=== PATIENT | male | born 1960 | race Caucasian/White ===

== ENCOUNTER 2020-07-25 10:30 | Outpatient (CLI) | payer OTHER, SELFPAY ==
[2020-07-25] VITALS (9 sets, daily range): BP systolic 141–176; BP diastolic 84–101; PULSE 75–80; RESP 15–22; TEMP 36.5; O2SAT 94–97
--- NOTE | 2020-07-25 10:33 | DI.RAD.S_ITS ---
PROCEDURE: PAIN L INTERLAMINAR/CAUDAL INJ INDICATIONS: SPONDYLOSIS COMPARISON: Outside Facility, RG, XR L-SPINE 4-6V, 11/12/2019, 8:40. [facility], MANI, MRI L-SPINE W/O CONTRAST, 06/20/2020, 10:58. FINDINGS: Fluoroscopic spot filming was performed to verify placement of a spinal needle at the L4-L5 level, as labeled on the films. Appropriate location of the needle tip was confirmed by injection of iodinated contrast. IMPRESSION: Intraprocedural examination within normal limits. Dictated by: Du Cummins M.D. on 07/25/2020 at 10:47 Approved by: Du Cummins M.D. on 07/25/2020 at 10:48
[2020-07-25] MEDS: fentaNYL 100 MCG/2 ML INJ 50 MCG IV (11:08)
[2020-07-25] MEDS: MIDAZOLAM 5 MG/5 ML VIAL IV (11:08)
[2020-07-25] MEDS: IOPAMIDOL 15 ML VIAL 3 ML INJ (11:12)
[2020-07-25] MEDS: BUPIVACAINE 0.25% (PF) VIAL 2 ML INJ (11:12)
[2020-07-25] MEDS: BETAMETHASONE 30 MG/5 ML MDV 6 MG INJ (11:13)
[2020-07-25] MEDS: DEXAMETHASONE 10 MG/ML VIAL 20 MG INJ (11:13)
--- NOTE | 2020-07-25 11:18 | P.PCN_ITS ---
Date/Time/Diagnoses Date of procedure: 07/25/20 Time of procedure: 11:18 Pre-procedure diagnosis: 1. HNP WITH RADICULAR FEATURES, 2. MULTILEVEL CENTRAL STENOSIS, Post-procedure diagnosis: same Procedure Notes Procedure: 1. FLUOROSCOPICALLY GUIDED CONTRAST CONTROLLED INTERLAMINAR EPIDURAL STEROID INJECTION -L4/5 Indications: Chano is referred by Dr. Martinez for treatment of Bilateral Foraminal Stenosis R>L LE symptoms. Physician: Juan Francis Total Fluoroscopy time (seconds): 6 Total sedation minutes: 8 Complications: none Procedure in detail & Post-procedure care: FINDINGS Multilevel Central Spinal Stenosis with Nerve Root Compression DESCRIPTION OF PROCEDURE Fluoroscopically guided, contrast-controlled L4/5 translaminar epidural steroid injection. Following review of allergy and review of potential side effects and complications, including, but not necessarily limited to, infection, allergic reaction, local tissue breakdown, temporary as well as permanent nerve injury, paralysis, stroke and possible , the patient indicated that the patient understood and agreed to proceed. An informed consent document was signed by the patient, witnessed by a nurse, and placed in the patient's chart. Additionally, other treatment options including modalities, medications, and physical therapy were reviewed with the patient. After review of previous anaesthesic history and IV conscious sedation the patient was deemed safe to proceed with today?s procedure with IV conscious sedation as ASA class II designation. Safety time-out was performed to confirm patient ID, procedure to be performed and site of procedure. IV sedation was accomplished with a combination of 2mg of Versed and 50mcg of Fentanyl was administered by the RN after DO order, titrated to patient comfort during the course of the procedure while the patient remained responsive to all verbal commands In the prone position, following sterile prep and drape of the lumbar region, the L4/5 translaminar space was identified fluoroscopically. The skin was anesthetized via a 25-gauge, 1.5inch needle with 1% lidocaine solution. At this point, a 22-gauge short bevel spinal needle was atraumatically introduced and advanced under fluoroscopic guidance into the region of the L4/5 translaminar space. Depth was confirmed on lateral view. Radiological data, including multiple fluoroscopic views of the lumbar spine, reveal a spinal needle at the L4/5 translaminar space. Lateral views then show placement of the needle in the epidural space. Subsequent views show contrast material flowing superiorly and inferiorly in the epidural space. No vascular or intrathecal uptake is observed. At this point, using loss of resistance technique with saline and air, the epidural space was entered. This was confirmed following negative aspiration with injection of approximately 1.5cc of Isovue 200, showing excellent epidural flow without vascular or intrathecal uptake. At this point, 1cc of 1% lidocaine solution combined with 3cc or 20mg of dexamethasone and 6mg betamethasone was injected without incident. The patient tolerated the procedure well without signs or symptoms of co mplications prior to transfer to the recovery area continued monitoring without incident. The patient was then transferred to the recovery area where they were observed for an appropriate period of time after the injection. The patient reported a VAS score of 6 prior to the procedure and a post- procedure VAS of 0. POST OP INSTRUCTIONS The patient was provided a Pain Log to continue to record their response to the target-specific procedure prior to follow-up visit with their referring physician. Additionally, specific post-injection care instructions and a contact number to our office were provided if concerns arise regarding possible complications associated with the procedure are suspected.
== END 2020-07-25 11:45 | disposition home or self-care (01) ==
LOC: RAD 10:31
PROVIDERS: PCP Family Medicine; Referring Provider Family Medicine; Visit Provider Physical Medicine & Rehabilitation
DX: M51.16 Intervertebral disc disorders with radiculopathy, lumbar region (principal); M48.061 Spinal stenosis, lumbar region without neurogenic claudication
CPT/HCPCS: 62323; J0702; J1100; J2250; J3010

== ENCOUNTER → 2021-10-23 09:53 | Outpatient (CLI) | payer OTHER, SELFPAY ==
--- NOTE | 2021-10-23 09:54 | DI.RAD.S_ITS ---
PROCEDURE: XR CERVICAL SPINE 4V OR 5V INDICATIONS: NECK PAIN TECHNIQUE: 5 views of the cervical spine acquired. COMPARISON: CR, XR CERVICAL SPINE 2 OR 3 VIEWS, 05/05/2017, 15:19. MR, C-SPINE WITHOUT CONTRAST, 05/19/2017, 11:36. [facility], RF, CERVICAL TRANSLAMINAR, 07/25/2017, 10:53. FINDINGS: Bones: No fractures or dislocations to the C7 level. There is degenerative disc disease, [id number] at C5-C6 and C6-C7, and mild at C4-C5. Bilateral facet arthropathy, most pronounced at C3-C4 on the right. Oblique images demonstrate bony foraminal stenoses, moderate at C3-C4 bilaterally, and severe at C5-C6 bilaterally. Soft tissues: No prevertebral soft tissue swelling. Soft tissue ossifications versus posterior to lower cervical spine at the level C6-C7. There are multiple surgical clips in the left neck. IMPRESSION: 1. Degenerative disc and facet disease as described. 2. Severe foraminal steatosis at C5-C6 bilaterally and moderate foraminal stenosis at C3-C4 bilaterally. Dictated by: Beto Smallwood M.D. on 10/23/2021 at 11:24 Approved by: Beto Smallwood M.D. on 10/23/2021 at 11:49
== END ==
PROVIDERS: PCP Family Medicine; Referring Provider Physical Medicine & Rehabilitation; Visit Provider Physical Medicine & Rehabilitation
DX: M50.321 Other cervical disc degeneration at C4-C5 level (principal); M47.812 Spondylosis without myelopathy or radiculopathy, cervical region; M48.02 Spinal stenosis, cervical region; M54.16 Radiculopathy, lumbar region; M54.9 Dorsalgia, unspecified; G89.29 Other chronic pain
CPT/HCPCS: 72050

== ENCOUNTER → 2021-11-16 19:15 | Outpatient (CLI) | payer OTHER, SELFPAY ==
--- NOTE | 2021-11-16 19:17 | DI.MRI.S_ITS ---
PROCEDURE: MR CERVICAL SPINE WO CON INDICATIONS: Left C6 radiculopathy TECHNIQUE: Noncontrast sagittal T1 spin echo and T2 fast spin echo, sagittal STIR, foraminal oblique sagittal T2 fast spin echo, and axial gradient echo or T2 fast spin echo through the cervical spine. COMPARISON: None. FINDINGS: Image quality: Excellent. Alignment and Curvature: There is normal bony alignment. Bone Marrow: Marrow demonstrates normal overall signal. Spinal Cord: Visualized spinal cord has normal size and signal. No cerebellar tonsillar herniation. Paraspinous Soft Tissues: No paravertebral masses. Prevertebral soft tissues are normal in thickness. C2-C3: Loss of disc signal. Mild, diffuse disc bulge. Mild narrowing of the central canal. Mild right and moderate left facet hypertrophy. Mild left neural foraminal narrowing. No neural compression. C3-C4: Loss of disc signal. Mild, diffuse disc bulge. Moderate bilateral facet hypertrophy. Mild bilateral uncovertebral joint hypertrophy. Mild narrowing of the central canal. Moderate bilateral neural foraminal narrowing. No neural compression. C4-C5: Loss of disc signal. Mild, diffuse disc bulge. Moderate bilateral facet hypertrophy. Mild left uncovertebral joint hypertrophy. Mild right and severe left neural foraminal narrowing with compression of the exiting left C5 nerve root. C5-C6: Loss of disc signal and height. Moderate, diffuse disc bulge. Moderate bilateral facet hypertrophy. Severe bilateral uncovertebral joint hypertrophy. Severe narrowing of the central canal with slight compression of the cervical spinal cord. Severe bilateral neural foraminal narrowing with compression of the exiting C6 nerve roots. C6-C7: Loss of disc signal and height. Moderate, diffuse disc bulge. Mild bilateral facet hypertrophy. Moderate bilateral uncovertebral joint hypertrophy. Severe narrowing of the central canal with compression of the cervical spinal cord. Mild bilateral neural foraminal narrowing C7-T1: Loss of disc signal. Mild, diffuse disc bulge. Mild bilateral facet hypertrophy. No central stenosis. No neural foraminal narrowing. No neural compression. IMPRESSION: 1. Multilevel degenerative disc disease. 2. Multilevel facet and uncovertebral arthropathy. 3. Severe C5-C6 and C6-C7 central canal narrowing with compression of the cervical spinal cord. 4. Severe left C4-C5 neural foraminal narrowing with compression of the exiting left C5 nerve root. Severe bilateral C5-C6 neural foraminal narrowing with compression of the exiting bilateral C6 nerve roots. Dictated by: Jennifer Berumen MD, PhD on 11/19/2021 at 10:12 Approved by: Jennifer Berumen MD, PhD on 11/19/2021 at 10:17
== END ==
PROVIDERS: PCP Family Medicine; Referring Provider Physical Medicine & Rehabilitation; Visit Provider Physical Medicine & Rehabilitation
DX: M47.22 Other spondylosis with radiculopathy, cervical region (principal); M50.11 Cervical disc disorder with radiculopathy, high cervical region; M48.02 Spinal stenosis, cervical region
CPT/HCPCS: 72141

== ENCOUNTER 2021-12-06 08:28 | Outpatient (CLI) | payer OTHER, SELFPAY ==
[2021-12-06] VITALS (9 sets, daily range): BP systolic 107–144; BP diastolic 64–92; PULSE 85–91; RESP 12–22; TEMP 36.1; O2SAT 92–98
--- NOTE | 2021-12-06 08:29 | DI.RAD.S_ITS ---
PROCEDURE: PAIN C/T INTERLAMINAR INJECT INDICATIONS: SPINAL STENOSIS COMPARISON: None. FINDINGS: Fluoroscopic spot filming was performed to verify placement of spinal needles at the C6-C7 interlaminar space. level(s), as labeled on the films. Appropriate location(s) of the needle tip(s) was confirmed by injection of iodinated contrast. IMPRESSION: Access needle at at the C6-C7 interlaminar space for translaminar epidural steroid injection. Dictated by: Jennifer Berumen MD, PhD on 12/06/2021 at 11:06 Approved by: Jennifer Berumen MD, PhD on 12/06/2021 at 11:12
[2021-12-06] MEDS: MIDAZOLAM 2 MG/2 ML VIAL 4 MG IV (10:15)
[2021-12-06] MEDS: IOPAMIDOL 15 ML VIAL 3 ML INJ (10:17)
[2021-12-06] MEDS: BUPIVACAINE 0.25% (PF) VIAL 2 ML INJ (10:17)
[2021-12-06] MEDS: DEXAMETHASONE 10 MG/ML VIAL 30 MG INJ (10:18)
--- NOTE | 2021-12-06 10:29 | P.PCN_ITS ---
Date/Time/Diagnoses Date of procedure: 12/06/21 Time of procedure: 10:29 Pre-procedure diagnosis: 1. CERVICAL STENOSIS, 2. CERVICAL HNP WITH UPPER EXTREMITY RADICULAR FEATURES Post-procedure diagnosis: same Procedure Notes Procedure: 1. FLUORSCOPICALLY GUIDED CONTRAST CONTROLLED INTERLAMINAR EPIDURAL STEROID INJECTION - C6/7 TL MARSHA Indications: Chano is referred by Dr. Martinez for treatment of Cervical HNP with Upper Extremity Paresthesias. Physician: Juan Francis Total Fluoroscopy time (seconds): 31 Total sedation minutes: 15 Complications: none Procedure in detail & Post-procedure care: FINDINGS Cervical Stenosis due to disc deterioration and nerve root irritation and nerve root irritation DESCRIPTION OF PROCEDURE Fluoroscopically guided, contrast-controlled C6/7 translaminar epidural steroid injection with conscious sedation. Following review of allergy and review of potential side effects and complications, including, but not necessarily limited to, infection, allergic reaction, local tissue breakdown, temporary as well as permanent nerve injury, stroke, paralysis, and possible , the patient indicated that patient understood and agreed to proceed. An informed consent document was signed by the patient, witnessed by a nurse, and placed in the patient's chart. Additionally, other treatment options including modalities, medications, and physical therapy were reviewed with the patient. After review of previous anaesthesic history and IV conscious sedation the patient was deemed safe to proceed with today?s procedure with IV conscious s edation as ASA class II designation. Safety time-out was performed to confirm patient ID, procedure to be performed and site of procedure. IV sedation was accomplished with a combination of 4mg of Versed administered by the RN after DO order, titrated to patient comfort during the course of the procedure while the patient remained responsive to all verbal commands. In the prone position, following sterile prep and drape of the cervical region, the C6/7 translaminar space was identified fluoroscopically. The skin was anesthetized via a 25-gauge 1.5-inch needle with 1% lidocaine solution. At this point, a 25-gauge, 2.5-inch short bevel spinal needle was atraumatically introduced and advanced under fluoroscopic guidance into epidural space at the C6/7 translaminar space. Depth was confirmed on lateral view. Radiological data, including multiple fluoroscopic views of the cervical spine, reveal a spinal needle at the C6/7 translaminar space. Lateral views then show placement of the needle in the epidural space. Subsequent views show contrast material flowing superiorly and inferiorly in the epidural space. DSA fluoroscopy with live contrast injection, once again, confirmed no vascular or intrathecal uptake. At this point, using loss of resistance technique with saline and air, the epidural space was entered. Following negative aspiration, injection of approximately 1.5 cc of Isovue-200 with live fluoroscopy in the AP view confirmed epidural flow in the epidural space without vascular or intrathecal uptake observed. Subsequently, a test dose of 1 cc of 1% lidocaine solution was injected and patient was observed for two minutes without signs or symptoms of complications, including abdominal pain, shortness of breath, bilateral upper or lower extremity weakness, nausea and vomiting, prior to steroid injection. At this point, 3cc or 30mg of dexamethasone was then injected without incident. The patient tolerated the procedure well without signs or symptoms of complications prior to being transferred to the recovery area for further monitoring, The patient was then transferred to the recovery area where they were observed for an appropriate period of time after the injection. The patient reported a VAS score of 6 prior to the procedure and a post-procedure VAS of 0. POST OP INSTRUCTIONS The patient was provided a Pain Log to continue to record their response to the target-specific procedure prior to follow-up visit with the referring provider. Additionally, specific post-injection care instructions and a contact number to our office were provided if concerns arise regarding possible complications associated with the procedure are suspected.
== END 2021-12-06 10:50 | disposition home or self-care (01) ==
LOC: RAD 08:28
PROVIDERS: PCP Family Medicine; Referring Provider Physical Medicine & Rehabilitation; Visit Provider Physical Medicine & Rehabilitation
DX: M48.02 Spinal stenosis, cervical region (principal); M50.123 Cervical disc disorder at C6-C7 level with radiculopathy
CPT/HCPCS: 62321; 99152; J1100; J2250

== ENCOUNTER 2022-04-11 07:40 | Outpatient (CLI) | payer OTHER, SELFPAY ==
[2022-04-11] VITALS (8 sets, daily range): BP systolic 116–146; BP diastolic 59–94; PULSE 83–89; RESP 12–20; TEMP 36.4; O2SAT 93–98
--- NOTE | 2022-04-11 07:42 | DI.RAD.S_ITS ---
PROCEDURE: PAIN C/T INTERLAMINAR INJECT INDICATIONS: SPINAL STENOSIS COMPARISON: [facility], ARLINE, XR CERVICAL SPINE 4V OR 5V, 10/23/2021, 9:48. [facility], XA, PAIN C/T INTERLAMINAR INJECT, 12/06/2021, 10:15. FINDINGS: Fluoroscopic spot filming was performed to verify placement of spinal needles at the right C6-7 level, as labeled on the films. Appropriate location of the needle tip was confirmed by injection of iodinated contrast. Surgical clips are seen projecting over the neck. IMPRESSION: Fluoroscopic images demonstrate appropriate needle placement. Dictated by: Real Meier M.D. on 04/11/2022 at 12:46 Approved by: Real Meier M.D. on 04/11/2022 at 12:47
[2022-04-11] MEDS: MIDAZOLAM 2 MG/2 ML VIAL IV (09:14)
[2022-04-11] MEDS: DEXAMETHASONE 10 MG/ML VIAL 30 MG INJ (09:25)
[2022-04-11] MEDS: BUPIVACAINE 0.25% (PF) VIAL 5 ML SUBCUT (09:25)
[2022-04-11] MEDS: IOPAMIDOL 15 ML VIAL 3 ML INJ (09:26)
--- NOTE | 2022-04-11 09:30 | P.PCN_ITS ---
Date/Time/Diagnoses Date of procedure: 04/11/22 Time of procedure: 09:30 Pre-procedure diagnosis: 1. CERVICAL STENOSIS, 2. CERVICAL HNP WITH UPPER EXTREMITY RADICULAR FEATURES Post-procedure diagnosis: same Procedure Notes Procedure: 1. FLUORSCOPICALLY GUIDED CONTRAST CONTROLLED INTERLAMINAR EPIDURAL STEROID INJECTION - C6/7 TL MARSHA Indications: Chano is referred by Dr. Garcia for treatment of Cervical HNP with Upper Extremity Paresthesias. Physician: Juan Francis Total Fluoroscopy time (seconds): 22 Total sedation minutes: 11 Complications: none Procedure in detail & Post-procedure care: FINDINGS Cervical Stenosis due to disc deterioration and nerve root irritation and nerve root irritation DESCRIPTION OF PROCEDURE Fluoroscopically guided, contrast-controlled C6/7 translaminar epidural steroid injection with conscious sedation. Following review of allergy and review of potential side effects and complications, including, but not necessarily limited to, infection, allergic reaction, local tissue breakdown, temporary as well as permanent nerve injury, stroke, paralysis, and possible , the patient indicated that patient understood and agreed to proceed. An informed consent document was signed by the patient, witnessed by a nurse, and placed in the patient's chart. Additionally, other treatment options including modalities, medications, and physical therapy were reviewed with the patient. After review of previous anaesthesic history and IV conscious sedation the patient was deemed safe to proceed with today?s procedure with IV conscious sedation as ASA class II designation. Safety time-out was performed to confirm patient ID, procedure to be performed and site of procedure. IV sedation was accomplished with a combination of 2mg of Versed administered by the RN after DO order, titrated to patient comfort during the course of the procedure while the patient remained responsive to all verbal commands. In the prone position, following sterile prep and drape of the cervical region, the C6/7 translaminar space was identified fluoroscopically. The skin was anesthetized via a 25-gauge 1.5-inch needle with 1% lidocaine solution. At this point, a 25-gauge, 2.5-inch short bevel spinal needle was atraumatically introduced and advanced under fluoroscopic guidance into epidural space at the C6/7 translaminar space. Depth was confirmed on lateral view. Radiological data, including multiple fluoroscopic views of the cervical spine, reveal a spinal needle at the C6/7 translaminar space. Lateral views then show placement of the needle in the epidural space. Subsequent views show contrast material flowing superiorly and inferiorly in the epidural space. DSA fluoroscopy with live contrast injection, once again, confirmed no vascular or intrathecal uptake. At this point, using loss of resistance technique with saline and air, the epidural space was entered. Following negative aspiration, injection of approximately 1.5 cc of Isovue-200 with live fluoroscopy in the AP view confirmed epidural flow in the epidural space without vascular or intrathecal uptake observed. Subsequently, a test dose of 1 cc of 1% lidocaine solution was injected and patient was observed for two minutes without signs or symptoms of complications, including abdominal pain, shortness of breath, bilateral upper or lower extremity weakness, nausea and vomiting, prior to steroid injection. At this point, 3cc or 30mg of dexamethasone was then injected without incident. The patient tolerated the procedure well without signs or symptoms of compl ications prior to being transferred to the recovery area for further monitoring, The patient was then transferred to the recovery area where they were observed for an appropriate period of time after the injection. The patient reported a VAS score of 6 prior to the procedure and a post-procedure VAS of 0. POST OP INSTRUCTIONS The patient was provided a Pain Log to continue to record their response to the target-specific procedure prior to follow-up visit with the referring provider. Additionally, specific post-injection care instructions and a contact number to our office were provided if concerns arise regarding possible complications associated with the procedure are suspected.
== END 2022-04-11 09:51 | disposition home or self-care (01) ==
LOC: RAD 07:41
PROVIDERS: PCP Student in an Organized Health Care Education/Training Program; Referring Provider Physical Medicine & Rehabilitation; Visit Provider Physical Medicine & Rehabilitation
DX: M48.02 Spinal stenosis, cervical region (principal); M50.123 Cervical disc disorder at C6-C7 level with radiculopathy
CPT/HCPCS: 62321; 99152; J1100; J2250; J3490

== ENCOUNTER → 2023-03-21 08:16 | Outpatient (CLI) | payer OTHER, SELFPAY ==
--- NOTE | 2023-03-21 08:18 | DI.RAD.S_ITS ---
PROCEDURE: XR LUMBAR SPINE MIN 4V INDICATIONS: BACK PAIN TECHNIQUE: 5 views of the lumbar spine were acquired, including bilateral oblique views. COMPARISON: None. FINDINGS: Bones: 5 nonrib-bearing vertebrae are present. There is normal bony alignment. Mild degenerative endplate changes are noted throughout lumbar spine more notably at L4-5 and L5-S1 levels. No vertebral body compression fractures. No suspicious bony lesions. Soft tissues: Overlying bowel gas pattern is normal. No suspicious soft tissue calcifications. Oblique images: No pars defects. IMPRESSION: Mild degenerative disc disease throughout lumbar spine. No acute compression fracture or spondylolisthesis. No gross pars defects. Dictated by: Vance William M.D. on 03/21/2023 at 9:00 Approved by: Vance William M.D. on 03/21/2023 at 9:07
== END ==
PROVIDERS: PCP Student in an Organized Health Care Education/Training Program; Referring Provider Physical Medicine & Rehabilitation; Visit Provider Physical Medicine & Rehabilitation
DX: M51.16 Intervertebral disc disorders with radiculopathy, lumbar region (principal); M51.17 Intervertebral disc disorders with radiculopathy, lumbosacral region
CPT/HCPCS: 72110

== ENCOUNTER 2023-04-22 11:53 | Outpatient (CLI) | payer OTHER, SELFPAY ==
[2023-04-22] VITALS (9 sets, daily range): BP systolic 132–149; BP diastolic 75–105; PULSE 71–78; RESP 12–21; TEMP 35.6; O2SAT 93–96
--- NOTE | 2023-04-22 11:54 | DI.RAD.S_ITS ---
PROCEDURE: PAIN L/S TRANSFORAMINAL INJECT INDICATIONS: SPONDYLOSIS COMPARISON: None. FINDINGS: Fluoroscopic spot filming was performed to verify placement of spinal needles at the L4-5 level(s), as labeled on the films. Appropriate location(s) of the needle tip(s) was confirmed by injection of iodinated contrast. IMPRESSION: Fluoro guidance was provided intraoperatively for left L4-5 transforaminal epidural steroid injection performed by the ordering physician. Dictated by: Vance William M.D. on 04/22/2023 at 16:26 Approved by: Vance William M.D. on 04/22/2023 at 16:27
[2023-04-22] MEDS: MIDAZOLAM 2 MG/2 ML VIAL IV (13:25)
[2023-04-22] MEDS: BUPIVACAINE 0.25% (PF) VIAL 2 ML INJ (13:33)
[2023-04-22] MEDS: BETAMETHASONE 30 MG/5 ML MDV 6 MG INJ (13:33)
[2023-04-22] MEDS: DEXAMETHASONE 10 MG/ML VIAL INJ (13:34)
[2023-04-22] MEDS: iopamidoL 15 ML VIAL 3 ML INJ (13:34)
--- NOTE | 2023-04-22 13:40 | P.PCN_ITS ---
Date/Time/Diagnoses Date of procedure: 04/22/23 Time of procedure: 13:41 Pre-procedure diagnosis: 1. FORAMINAL STENOSIS WITH LE SYMPTOMS Post-procedure diagnosis: same Procedure Notes Procedure: 1. FLUOROSCOPICALLY GUIDED CONTRAST CONTROLLED TRANSFORAMINAL EPIDURAL STEROID INJECTION - LEFT L4/5 Indications: Chano is referred by Dr. Garcia for treatment of Foraminal Stenosis with Left LE Symptoms Physician: Juan Francis Total Fluoroscopy time (seconds): 19 Total sedation minutes: 13 Complications: none Procedure in detail & Post-procedure care: FINDINGS Foraminal Nerve Root Compression secondary to disc disease and facet hypertrophy DESCRIPTION OF PROCEDURE Following review of allergy and review of potential side effects and complications, including, but not necessarily limited to, infection, allergic reaction, local tissue breakdown, stroke, temporary or permanent nerve injury, paralysis, and possible , the patient indicated that the patient understood and agreed to proceed. An informed consent document was signed by the patient, witnessed by a nurse, and placed in the patient's chart. Additionally, other treatment options including medications, modalities, and physical therapy were reviewed with the patient. After review of previous anaesthesic history and IV conscious sedation the patient was deemed safe to proceed with today?s procedure with IV conscious sedation as ASA class II designation. Safety time-out was performed to confirm patient ID, procedure to be performed and site of procedure. IV sedation was accomplished with a combination of 2mg of Versed administered by the RN after DO order, titrated to patient comfort during the course of the procedure while the patient remained responsive to all verbal commands In the prone position following sterile prep and drape of the lumbar region, the left L4/5 posterior neuroforamen was identified fluoroscopically. The skin was anesthetized via a 25-gauge 1.5-inch needle with 1% lidocaine solution. At this point, a 22-gauge 5-inch spinal needle was atraumatically introduced and advanced under fluoroscopic guidance through the posterior left L4/5 neuroforamen to approximately the anterior aspect of the canal. Depth was confirmed on lateral view. Following negative aspiration, injection of approximately 1.5 cc of Isovue 200 under live fluoroscopy in the AP view confirmed excellent flow along the nerve root, into the epidural space without vascular or intrathecal uptake observed Radiological data, including multiple fluoroscopic views of the lumbosacral spine, reveal a spinal needle at the left L4/5 posterior neuroforamen. Subsequent views show flow of contrast material flowing superiorly and inferiorly along the nerve root confirming epidural flow. Subsequently, a test dose of 1.5 cc of 1% lidocaine solution was administered and patient was observed for two minutes for signs or symptoms of complications, including abdominal pain, shortness of breath, bilateral upper or lower extremity weakness, nausea and vomiting, prior to steroid injection. At this point, a total of 2cc or 10mg of dexamethasone and 6mg of betamethasone was injected without incident. The procedure tolerated the procedure well without signs or symptoms of complications prior to transfer to the recovery area continued monitoring without incident. The patient was then transferred to the recovery area where they were observed for an appropriate time after the injection. The patient reported a VAS score of 7 prior to the procedure and a post- procedure VAS of 0. POST OP INSTRUCTIONS The patient was provided a Pain Log to continue to record their response to the target-specific procedure prior to follow-up visit with their referring physician. Additionally, specific post-injection care instructions and a contact number to our office were provided if concerns arise regarding possible complications associated with the procedure are suspected.
== END 2023-04-22 14:01 | disposition home or self-care (01) ==
PROVIDERS: PCP Student in an Organized Health Care Education/Training Program; Referring Provider Physical Medicine & Rehabilitation; Visit Provider Physical Medicine & Rehabilitation
DX: M51.26 Other intervertebral disc displacement, lumbar region (principal); M54.16 Radiculopathy, lumbar region
CPT/HCPCS: 64483; 99152; J0702; J1100; J2250; J3490

== ENCOUNTER → 2023-06-09 13:53 | Outpatient (CLI) | payer OTHER, SELFPAY ==
--- NOTE | 2023-06-09 13:55 | DI.CT.S_ITS ---
PROCEDURE: CT PEL WO CON INDICATIONS: SI JOINT DYSFUCTION TECHNIQUE: Noncontrast 3 mm axial sections acquired through the bony pelvis, with coronal and sagittal reformatting. COMPARISON: None. FINDINGS: Image quality: Excellent. Bones: Pelvic ring is intact. No pelvic fracture or dislocation. Bridging osteophyte formation along anterior aspect of bilateral sacroiliac joint is seen. Subchondral sclerosis and joint space narrowing involving bilateral sacroiliac joints are also noted slightly more notably involving left sacroiliac joint. No suspicious bony lesions. Left worse than right bilateral hip joint osteoarthritic changes are seen. No evidence of avascular necrosis of femoral head. Soft tissues: There is no gross pelvic or hip soft tissue abnormalities. No pelvic free fluid or free air. Bladder wall thickness is normal. Bowel wall thickness is normal. No pelvic lymphadenopathy by size criteria. IMPRESSION: 1. 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 No fracture or dislocation. No suspicious bony lesions. 2. Left worse than right bilateral hip joint osteoarthritis. No evidence of avascular necrosis of femoral head. 3. No gross pelvic soft tissue abnormalities. Dictated by: Vance William M.D. on 06/09/2023 at 15:24 Approved by: Vance William M.D. on 06/09/2023 at 15:31
== END ==
PROVIDERS: PCP Student in an Organized Health Care Education/Training Program; Referring Provider Neurological Surgery; Visit Provider Neurological Surgery
DX: M47.818 Spondylosis without myelopathy or radiculopathy, sacral and sacrococcygeal region (principal); M16.0 Bilateral primary osteoarthritis of hip; M53.88 Other specified dorsopathies, sacral and sacrococcygeal region
CPT/HCPCS: 72192

== ENCOUNTER 2023-06-17 13:04 | Outpatient (CLI) | payer OTHER, SELFPAY ==
[2023-06-17] VITALS (9 sets, daily range): BP systolic 136–188; BP diastolic 80–106; PULSE 79–86; RESP 11–21; TEMP 36.4; O2SAT 94–99
--- NOTE | 2023-06-17 13:00 | DI.RAD.S_ITS ---
PROCEDURE: PAIN SI JOINT INJECTION INDICATIONS: sacral back pain COMPARISON: [facility], CT, CT PEL WO CON, 06/09/2023, 14:02. FINDINGS: Fluoroscopic spot filming was performed to verify placement of spinal needles at the left SI joint level(s), as labeled on the films. Appropriate location(s) of the needle tip(s) was confirmed by injection of iodinated contrast. IMPRESSION: Fluoroscopy for pain management. Dictated by: Beto Smallwood M.D. on 06/17/2023 at 15:31 Approved by: Beto Smallwood M.D. on 06/17/2023 at 15:32
--- NOTE | 2023-06-17 13:25 | PC.NURSE ---
Patient reports indigestion that is not usually experienced often. Reports occasional. Denies CP, SOB, Palipiations, N/V. Placed on telemetry - SR noted HR 80's. BP elevated 157/98 last, see trends charted. Dr. Francis aware.
[2023-06-17] MEDS: MIDAZOLAM 2 MG/2 ML VIAL IV (13:34)
[2023-06-17] MEDS: iopamidoL 15 ML VIAL 3 ML INJ (13:39)
[2023-06-17] MEDS: BUPIVACAINE 0.5% (PF) 10 ML VIAL 2 ML INJ (13:39)
[2023-06-17] MEDS: BETAMETHASONE 30 MG/5 ML MDV 12 MG INJ (13:39)
--- NOTE | 2023-06-17 13:53 | PM.PROC.IR.1 ---
Date/Time/Diagnoses Date of procedure: 06/17/23 Time of procedure: 13:53 Pre-procedure diagnosis: Sacroiliac Joint Pain/DJD Post-procedure diagnosis: same Procedure Notes Procedure: Fluoroscopically guided contrast controlled left sacroiliac joint injection Indications: Chano is referred by Dr. Garcia for treatment of left sacroiliac joint DJD Physician: Juan Francis Total Fluoroscopy time (seconds): 12 Total sedation minutes: 12 Complications: none Procedure in detail & Post-procedure care: DESCRIPTION OF PROCEDURE Fluoroscopic guided, contrast controlled left sacroiliac joint injection Following review of allergies and review of potential side effects and complications, including, but not necessarily limited to, infection, allergic reaction, local tissue breakdown, temporary as well as permanent nerve injury, paralysis, stroke and possible , the patient indicated that they understood and agreed to proceed. An informed consent was signed by the patient, witnessed by a nurse, and placed in the patient's chart. Additionally, other treatment options including modalities, medications, and physical therapy were reviewed with the patient. After review of previous anaesthesic history and IV conscious sedation the patient was deemed safe to proceed with today?s procedure with IV conscious sedation as ASA class II designation. Safety time-out was performed to confirm patient ID, procedure to be performed and site of procedure. IV sedation was accomplished with a combination of 2mg of Versed administered by the RN after DO order, titrated to patient comfort during the course of the procedure while the patient remained responsive to all verbal commands. In the prone position following sterile prep and drape of the pelvic region, the hyper lucency on in the inferior aspect of the left sacroiliac joint was identified fluoroscopically the skin was anesthetized be a 25 gauge 1 eventual with approximately 2cc of 1% lidocaine solution. At this point, a 22 gauge 3inch spinal needle was atraumatically introduced and advanced under fluoroscopic guidance into the inferior aspect of the left sacroiliac joint. Following negative aspiration, approximately 0.3cc of Isovue-300 was injected confirming intra-articular placement without vascular uptake. Radiographic data, including multiple fluoroscopic views of the pelvis, reveals a spinal needle in the left sacroiliac joint hyper lucent zone. Subsequent view show flow contrast tear superiorly and inferiorly within the joint capsule without vascular intrathecal uptake. At this point a total of 1cc or 0.5% Marcaine was combined with 1cc of 6mg of betamethasone was injected without incident. The patient tolerated the procedure well without signs or symptoms of complications prior to transfer to the recovery area for further monitoring. The patient was then transferred to the recovery area with a bur observed for an appropriate time after the injection. The patient reverted a vas score of 7 prior to the procedure and postprocedure vas of 1. POSTOP INSTRUCTIONS The patient was provided with a pain like to continue to record the patient's response to the target specific procedure prior to the patient's follow-up visit with the referring physician. Additionally, specific post injection care instructions and a contact number to our office were provided if concerns arise regarding the possible complications associated with procedure are suspected.
== END 2023-06-17 14:09 | disposition home or self-care (01) ==
LOC: RAD 13:04
PROVIDERS: PCP Student in an Organized Health Care Education/Training Program; Referring Provider Physical Medicine & Rehabilitation; Visit Provider Physical Medicine & Rehabilitation
DX: M53.3 Sacrococcygeal disorders, not elsewhere classified (principal); M46.1 Sacroiliitis, not elsewhere classified
CPT/HCPCS: 27096; 99152; J0702; J2250

== ENCOUNTER 2023-10-14 12:04 | Outpatient (CLI) | payer OTHER, SELFPAY ==
[2023-10-14] VITALS (8 sets, daily range): BP systolic 119–138; BP diastolic 60–93; PULSE 6–85; RESP 15–20; TEMP 36.3; O2SAT 94–98
--- NOTE | 2023-10-14 13:30 | DI.RAD.S_ITS ---
PROCEDURE: PAIN SI JOINT INJECTION INDICATIONS: SACRAL DYSFUNCTION COMPARISON: [facility], XA, PAIN SI JOINT INJECTION, 06/17/2023, 14:38. FINDINGS: Fluoroscopic spot filming was performed to verify placement of spinal needles at the left sacroiliac joint, as labeled on the films. Appropriate location(s) of the needle tip(s) was confirmed by injection of iodinated contrast. IMPRESSION: Fluoroscopically guided left sacroiliac joint injection. Dictated by: Syeda Ritter M.D. on 10/14/2023 at 15:43 Approved by: Syeda Ritter M.D. on 10/14/2023 at 15:44
[2023-10-14] MEDS: MIDAZOLAM 2 MG/2 ML VIAL IV (13:52)
[2023-10-14] MEDS: BETAMETHASONE 30 MG/5 ML MDV 12 MG INJ (13:56)
[2023-10-14] MEDS: BUPIVACAINE 0.5% (PF) 10 ML VIAL 2 ML INJ (13:56)
[2023-10-14] MEDS: iopamidoL 15 ML VIAL 3 ML INJ (13:56)
--- NOTE | 2023-10-14 14:04 | PM.PROC.IR.1 ---
Date/Time/Diagnoses Date of procedure: 10/14/23 Time of procedure: 14:04 Pre-procedure diagnosis: Sacroiliac Joint Pain/DJD Post-procedure diagnosis: same Procedure Notes Procedure: Fluoroscopically guided contrast controlled left sacroiliac joint injection Indications: Chano is referred by Dr. Garcia for treatment of left sacroiliac joint DJD Physician: Juan Francis Total Fluoroscopy time (seconds): 9 Total sedation minutes: 10 Complications: none Procedure in detail & Post-procedure care: DESCRIPTION OF PROCEDURE Fluoroscopic guided, contrast controlled left sacroiliac joint injection Following review of allergies and review of potential side effects and complications, including, but not necessarily limited to, infection, allergic reaction, local tissue breakdown, temporary as well as permanent nerve injury, paralysis, stroke and possible , the patient indicated that they understood and agreed to proceed. An informed consent was signed by the patient, witnessed by a nurse, and placed in the patient's chart. Additionally, other treatment options including modalities, medications, and physical therapy were reviewed with the patient. After review of previous anaesthesic history and IV conscious sedation the patient was deemed safe to proceed with today?s procedure with IV conscious sedation as ASA class II designation. Safety time-out was performed to confirm patient ID, procedure to be performed and site of procedure. IV sedation was accomplished with a combination of 2mg of Versed administered by the RN after DO order, titrated to patient comfort during the course of the procedure while the patient remained responsive to all verbal commands. In the prone position following sterile prep and drape of the pelvic region, the hyper lucency on in the inferior aspect of the left sacroiliac joint was identified fluoroscopically the skin was anesthetized be a 25 gauge 1 eventual with approximately 2cc of 1% lidocaine solution. At this point, a 22 gauge 3inch spinal needle was atraumatically introduced and advanced under fluoroscopic guidance into the inferior aspect of the left sacroiliac joint. Following negative aspiration, approximately 0.3cc of Isovue-300 was injected confirming intra-articular placement without vascular uptake. Radiographic data, including multiple fluoroscopic views of the pelvis, reveals a spinal needle in the left sacroiliac joint hyper lucent zone. Subsequent view show flow contrast tear superiorly and inferiorly within the joint capsule without vascular intrathecal uptake. At this point a total of 1cc or 0.5% Marcaine was combined with 1cc of 6mg of betamethasone was injected without incident. The patient tolerated the procedure well without signs or symptoms of complications prior to transfer to the recovery area for further monitoring. The patient was then transferred to the recovery area with a bur observed for an appropriate time after the injection. The patient reverted a vas score of 7 prior to the procedure and postprocedure vas of 1. POSTOP INSTRUCTIONS The patient was provided with a pain like to continue to record the patient's response to the target specific procedure prior to the patient's follow-up visit with the referring physician. Additionally, specific post injection care instructions and a contact number to our office were provided if concerns arise regarding the possible complications associated with procedure are suspected.
--- NOTE | 2023-10-14 14:31 | PC.NURSE ---
Patients kimmy had appointment in [place] and was on her way back and will be at the hospital around 1500. Ok to d/c patient per Dr Francis to wait in the lobby. Patient is steady on feet. Sitting in chair next to main entrance check in.
== END 2023-10-14 14:30 | disposition home or self-care (01) ==
LOC: RAD 12:04
PROVIDERS: PCP Student in an Organized Health Care Education/Training Program; Referring Provider Physical Medicine & Rehabilitation; Visit Provider Physical Medicine & Rehabilitation
DX: M53.3 Sacrococcygeal disorders, not elsewhere classified (principal); M46.1 Sacroiliitis, not elsewhere classified
CPT/HCPCS: 27096; 99152; G0260; J0702; J2250

== ENCOUNTER 2024-01-06 07:30 | Outpatient (CLI) | payer OTHER, SELFPAY ==
[2024-01-06] VITALS (9 sets, daily range): BP systolic 116–135; BP diastolic 60–87; PULSE 69–76; RESP 15–19; TEMP 36.2; O2SAT 94–99
[2024-01-06] MEDS: MIDAZOLAM 2 MG/2 ML VIAL IV (09:00)
[2024-01-06] MEDS: iopamidoL 15 ML VIAL 3 ML INJ (09:03)
[2024-01-06] MEDS: DEXAMETHASONE 10 MG/ML VIAL 20 MG INJ (09:04)
[2024-01-06] MEDS: BUPIVACAINE 0.25% (PF) VIAL 2 ML INJ (09:05)
--- NOTE | 2024-01-06 09:23 | P.PCN_ITS ---
Date/Time/Diagnoses Date of procedure: 01/06/24 Time of procedure: 09:23 Pre-procedure diagnosis: 1. CERVICAL STENOSIS, 2. CERVICAL HNP WITH UPPER EXTREMITY RADICULAR FEATURES Post-procedure diagnosis: same Procedure Notes Procedure: 1. FLUORSCOPICALLY GUIDED CONTRAST CONTROLLED INTERLAMINAR EPIDURAL STEROID INJECTION - C6/7 TL MARSHA Indications: Chano is referred by Dr. Garcia for treatment of Cervical HNP with Upper Extremity Paresthesias. Physician: Juan Francis Total Fluoroscopy time (seconds): 40 Total sedation minutes: 14 Complications: none Procedure in detail & Post-procedure care: FINDINGS Cervical Stenosis due to disc deterioration and nerve root irritation and nerve root irritation DESCRIPTION OF PROCEDURE Fluoroscopically guided, contrast-controlled C6/7 translaminar epidural steroid injection with conscious sedation. Following review of allergy and review of potential side effects and complications, including, but not necessarily limited to, infection, allergic reaction, local tissue breakdown, temporary as well as permanent nerve injury, stroke, paralysis, and possible , the patient indicated that patient understood and agreed to proceed. An informed consent document was signed by the patient, witnessed by a nurse, and placed in the patient's chart. Additionally, other treatment options including modalities, medications, and physical therapy were reviewed with the patient. After review of previous anaesthesic history and IV conscious sedation the patient was deemed safe to proceed with today?s procedure with IV conscious sedation as ASA class II designation. Safety time-out was performed to confirm patient ID, procedure to be performed and site of procedure. IV sedation was accomplished with a combination of 2mg of Versed administered by the RN after DO order, titrated to patient comfort during the course of the procedure while the patient remained responsive to all verbal commands. In the prone position, following sterile prep and drape of the cervical region, the C6/7 translaminar space was identified fluoroscopically. The skin was anesthetized via a 25-gauge 1.5-inch needle with 1% lidocaine solution. At this point, a 25-gauge, 2.5-inch short bevel spinal needle was atraumatically introduced and advanced under fluoroscopic guidance into epidural space at the C6/7 translaminar space. Depth was confirmed on lateral view. Radiological data, including multiple fluoroscopic views of the cervical spine, reveal a spinal needle at the C6/7 translaminar space. Lateral views then show placement of the needle in the epidural space. Subsequent views show contrast material flowing superiorly and inferiorly in the epidural space. DSA fluoroscopy with live contrast injection, once again, confirmed no vascular or intrathecal uptake. At this point, using loss of resistance technique with saline and air, the epidural space was entered. Following negative aspiration, injection of approximately 1.5 cc of Isovue-200 with live fluoroscopy in the AP view confirmed epidural flow in the epidural space without vascular or intrathecal uptake observed. Subsequently, a test dose of 1 cc of 1% lidocaine solution was injected and patient was observed for two minutes without signs or symptoms of complications, including abdominal pain, shortness of breath, bilateral upper or lower extremity weakness, nausea and vomiting, prior to steroid injection. At this point, 2cc or 20mg of dexamethasone was then injected without incident. The patient tolerated the procedure well without signs or symptoms of compl ications prior to being transferred to the recovery area for further monitoring, The patient was then transferred to the recovery area where they were observed for an appropriate period of time after the injection. The patient reported a VAS score of 7 prior to the procedure and a post-procedure VAS of 1. POST OP INSTRUCTIONS The patient was provided a Pain Log to continue to record their response to the target-specific procedure prior to follow-up visit with the referring provider. Additionally, specific post-injection care instructions and a contact number to our office were provided if concerns arise regarding possible complications associated with the procedure are suspected.
--- NOTE | 2024-01-06 09:30 | DI.RAD.S_ITS ---
PROCEDURE: PAIN C/T INTERLAMINAR INJECT INDICATIONS: C 6/7 TL MARSHA COMPARISON: [facility], , PAIN C/T INTERLAMINAR INJECT, 04/11/2022, 9:17. FINDINGS: Fluoroscopic spot filming was performed to verify placement of spinal needles at the C6-C7 level(s), as labeled on the films. Appropriate location(s) of the needle tip(s) was confirmed by injection of iodinated contrast. IMPRESSION: Intraoperative guidance provided. Dictated by: Shaun Walton M.D. on 01/06/2024 at 12:15 Approved by: Shaun Walton M.D. on 01/06/2024 at 12:16
== END 2024-01-06 09:45 | disposition home or self-care (01) ==
LOC: RAD 07:30
PROVIDERS: PCP Student in an Organized Health Care Education/Training Program; Referring Provider Physical Medicine & Rehabilitation; Visit Provider Physical Medicine & Rehabilitation
DX: M48.02 Spinal stenosis, cervical region (principal); M50.123 Cervical disc disorder at C6-C7 level with radiculopathy
CPT/HCPCS: 62321; 99152; J1100; J2250; J3490